=== PATIENT | male | born 1950 | race Caucasian/White ===

== ENCOUNTER 2024-10-28 12:41 | Outpatient (CLI) | payer MEDICARE | END 2024-10-28 23:59 | disposition home or self-care (01) | LOC: RAD 12:41 | PROVIDERS: ATTEND Physician Assistant | DX: J84.10 Pulmonary fibrosis, unspecified (principal); J98.11 Atelectasis; J98.4 Other disorders of lung; F17.201 Nicotine dependence, unspecified, in remission; I31.39 Other pericardial effusion (noninflammatory) | CPT/HCPCS: 71250 ==